=== PATIENT | male | born 1960 | race African-American/Black ===

== ENCOUNTER 2021-01-13 06:02 | Emergency (ER) | payer OTHER, SELFPAY ==
[2021-01-13] MEDS ORDERED: predniSONE 20 MG TAB ONE (06:18)
[2021-01-13] MEDS ORDERED: Famotidine 20 MG TAB ONE (06:19)
== END 2021-01-13 09:33 | disposition home or self-care (01) ==
LOC: CSHERS 06:02
DX: H10.9 Unspecified conjunctivitis (principal); E11.65 Type 2 diabetes mellitus with hyperglycemia; I10 Essential (primary) hypertension; E78.5 Hyperlipidemia, unspecified; Z79.84 Long term (current) use of oral hypoglycemic drugs
CPT/HCPCS: 99283; J7512

== ENCOUNTER 2021-07-19 20:40 | Observation (INO) | payer OTHER, SELFPAY ==
[2021-07-19] MEDS ORDERED: Guaifenesin DM 100-10/5 ML UDCUP PO PRN (21:25)
[2021-07-19] MEDS ORDERED: Acetaminophen 325 MG TAB PO PRN (21:25)
[2021-07-19] MEDS ORDERED: HYDROcodone/Acetaminophen 5/325 mg Tablet PO PRN (21:25)
[2021-07-19] MEDS ORDERED: Ondansetron PF 4 MG/2 ML Vial IVP PRN (21:25)
[2021-07-19] MEDS ORDERED: Senokot S 8.6-50 MG TAB PO PRN (21:25)
[2021-07-19] MEDS ORDERED: Calcium Carbonate 500 MG ChewTAB PO PRN (21:25)
[2021-07-19] MEDS ORDERED: predniSONE 20 MG TAB PO SCH (22:00)
[2021-07-19] MEDS ORDERED: Potassium Chloride 20 MEQ TAB PO SCH (22:00)
[2021-07-19 22:07] VITALS: BMI 32.8
[2021-07-19] MEDS: Meclizine HCl 25 MG TAB PO SCH (22:23)
[2021-07-20] MEDS: Amoxicillin/Potassium Clav 875 MG TAB PO SCH ×2 (04:37→15:20)
[2021-07-20 05:34] LABS: Anion Gap 16 mmol/L (10-20); BUN (Urea Nitrogen) 14 mg/dL (8.4-25.7); Calc. Creatinine Clearance 122 mL/min (70-130); Calcium 9.5 mg/dL (7.8-10.44); Carbon Dioxide 27 mmol/L (22-29); Chloride 103 mmol/L (98-107); Glucose 172 mg/dL (70-105); Potassium 4.1 mmol/L (3.5-5.1); Sodium 142 mmol/L (136-145)
[2021-07-20] MEDS: Meclizine HCl 25 MG TAB PO SCH ×2 (05:42→15:20)
[2021-07-20] MEDS ORDERED: Potassium Chloride 10 MEQ TAB PO SCH (08:00)
[2021-07-20] MEDS ORDERED: metFORMIN XR 500 MG TAB PO SCH (08:00)
[2021-07-20] MEDS ORDERED: Atenolol 25 MG TAB PO SCH (09:00)
[2021-07-20] MEDS ORDERED: CYCLOBENZAPRINE HCL 7.5 MG PO SCH (09:00)
[2021-07-20] MEDS ORDERED: Chlorthalidone 25 MG TAB PO SCH (09:00)
[2021-07-20] MEDS ORDERED: Enoxaparin Sodium 40 MG/0.4 ML SYRINGE SC SCH (09:00)
[2021-07-20] MEDS: Gabapentin 300 MG CAP PO SCH ×2 (09:14→15:20)
[2021-07-20 17:15] VITALS: TEMP 97
[2021-07-20 18:14] VITALS: BP 147/67
[2021-07-20] MEDS ORDERED: Atorvastatin Calcium 40 MG TAB PO SCH (21:00)
== END 2021-07-20 18:18 | disposition home or self-care (01) ==
LOC: CSHTELE 20:40 → INTOOBSV 20:40
PROVIDERS: ADMIT Internal Medicine; ATTEND Internal Medicine
DX: E87.6 Hypokalemia (principal); R42 Dizziness and giddiness; E11.42 Type 2 diabetes mellitus with diabetic polyneuropathy; E11.22 Type 2 diabetes mellitus with diabetic chronic kidney disease; I12.9 Hypertensive chronic kidney disease with stage 1 through stage 4 chronic kidney disease, or unspecified chronic kidney disease; N18.2 Chronic kidney disease, stage 2 (mild); E78.5 Hyperlipidemia, unspecified; Z89.612 Acquired absence of left leg above knee; G89.29 Other chronic pain; Z79.899 Other long term (current) drug therapy; Z79.84 Long term (current) use of oral hypoglycemic drugs; T45.2X6A Underdosing of vitamins, initial encounter; Z91.138 Patient's unintentional underdosing of medication regimen for other reason; Z91.19 Patient's noncompliance with other medical treatment and regimen
CPT/HCPCS: 36416; 70450; 70551; 80048; 83735; 96372; G0378; J1650; J7512